=== PATIENT | male | born 1950 | race Caucasian/White ===

== ENCOUNTER 2019-08-13 19:44 | Inpatient (IN) | payer BC, OTHER ==
[~2019-08-13] VITALS: Ht 172.7 cm; Wt 122.9 kg
[2019-08-13 21:13] LABS: Basophils # (auto) 0 uL; Basophils % (auto) 0.2 % (0.0-2.0); Eosinophils # (auto) 0 uL; Hematocrit 41.9 % (41.0-53.0); Hemoglobin 13.8 g/dL (13.5-17.5); Lymphocytes # (auto) 0.6 uL; Lymphocytes % (auto) 3.2 % (10.0-50.0); Mean Corpuscular Hgb Conc. 32.8 g/dL (32.0-36.0); Mean Corpuscular Volume 91.5 fL (80.0-100.0); Monocytes # (auto) 1.6 uL; Monocytes % (auto) 8.4 % (0.0-12.0); Neutrophils # (auto) 16.8 uL; Neutrophils % (auto) 88.2 % (37.0-80.0); Platelet Count (auto) 203 10^3/uL (140-450); Red Blood Cells 4.58 10^6/uL (4.5-5.90); Red Cell Distribution Width 13.9 % (11.8-14.3)
[2019-08-13 21:29] LABS: Partial Thromboplastin Time 30.5 sec (23.64-32.05)
[2019-08-13 21:37] LABS: BUN/Creatinine Ratio 20.4; Calcium 7.8 mg/dL (8.5-10.1); Potassium 3.6 mmol/L (3.5-5.1)
[2019-08-13 21:41] LABS: Bilirubin, Total 0.4 mg/dL (0.2-1.0); Total Protein 7.5 g/dL (6.4-8.2)
[2019-08-13] MEDS ORDERED: DEXTROSE (50%) 50ML SYRG IV ONE (22:00)
[2019-08-13 22:26] LABS: Urine Bacteria NONE SEEN /hpf (None Seen); Urine Blood TRACE /uL (Negative); Urine Hyaline Cast MOD /lpf (0 - 2); Urine Mucus FEW (None Seen); Urine WBC 2 /hpf (0 - 3)
[2019-08-13] MEDS ORDERED: DEXTROSE 10% 1,000 ML IV ONE (22:30)
[2019-08-13] MEDS ORDERED: IOHEXOL 350 MG/ML 100ML IJ ONE (23:31)
[2019-08-13] MEDS ORDERED: ENOXAPARIN SOD 120 MG/0.8 ML SYRINGE SC ONE (23:45)
[2019-08-14] MEDS ORDERED: DEXTROSE 10% 1,000 ML IV STA (01:30)
[2019-08-14] MEDS ORDERED: DEXTROSE (50%) 50ML SYRG IV ONE (01:30)
[2019-08-14] MEDS ORDERED: NITROGLYCERIN 0.4 MG SL TAB SL PRN (03:00)
[2019-08-14] MEDS ORDERED: ACETAMINOPHEN 325 MG TAB PO PRN (03:00)
[2019-08-14] MEDS ORDERED: MORPHINE SULF INJ 2 MG/ML SYRINGE 1ML IV PRN (03:00)
[2019-08-14] MEDS ORDERED: cefTRIAXone 1GM/50ML D5W 50 ML IV ONE (03:00)
[2019-08-14] MEDS ORDERED: METOPROLOL TARTRATE 1MG/1ML-5ML VIAL IV ONE (03:00)
[2019-08-14] MEDS ORDERED: ATORVASTATIN 20 MG TAB PO ONE (03:00)
[2019-08-14] MEDS ORDERED: ONDANSETRON HCL 4 MG/2 ML VIAL IV PRN (03:00)
[2019-08-14] MEDS: DEXTROSE 10% 1,000 ML IV SCH ×2 (03:21→23:00)
[2019-08-14] MEDS: InsuLIN REG 1unit/0.01ml Soln (100units/ml) SC SCH ×5 (04:00→20:00)
[2019-08-14] MEDS: ACCU-CHEK COMFORT CURVE STRIP VI SCH ×5 (04:00→20:13)
[2019-08-14 04:22] LABS: Cholesterol 85 mg/dL (< 200)
[2019-08-14 04:25] LABS: HDL Cholesterol 47 mg/dL (40-59); LDL Cholesterol 34 mg/dL (< 100); Triglycerides 48 mg/dL (< 150)
[2019-08-14] MEDS: DEXTROSE (50%) 50ML SYRG IV PRN ×3 (04:40→11:52)
[2019-08-14] MEDS ORDERED: LOSA25TA38 PO (06:00)
[2019-08-14] MEDS ORDERED: METF-372 PO (06:06)
[2019-08-14] MEDS ORDERED: GLY5T PO (06:06)
[2019-08-14] MEDS ORDERED: LOVA20TA4 PO (06:06)
[2019-08-14] MEDS ORDERED: PIO30T PO (06:06)
[2019-08-14] MEDS ORDERED: HYDR50TA15 PO (06:06)
--- NOTE | 2019-08-14 09:16 | NUR ---
Telemetry admit from ER [place] admitted to Telemetry unit after SBAR received. Patient oriented to [place] RN, unit, room, bed, and unit policies regarding patient care and visiting hours. Patient now on continuous telemetry monitoring, tele box # 39 and telemetry reading on arrival to unit is sinus rhythm in the 70's. Patient weighed by bedscale and encouraged to call if they need something. All questions and concerns addressed, patient verbalized understanding.
[2019-08-14] MEDS ORDERED: ADENOSINE 104 MG in GIVE UN-DILUTED 0 ML IV STA (09:35)
[2019-08-14 10:46] VITALS: BP 132/67
--- NOTE | 2019-08-14 11:36 | NUR ---
BLOOD GLUCOSE CHECK OF 39, REPEAT 44. PATIENT STATES HE FEELS A LITTLE FUZZY. DEXTROSE 50% GIVEN IV. WILL CONTINUE TO MONITOR.
--- NOTE | 2019-08-14 12:33 | NUR ---
BLOOD GLUCOSE RECHECK OF 160, PATIENT STATES HE IS FEELING BETTER.
[2019-08-14 13:00] VITALS: BP 145/74
[2019-08-14] MEDS ORDERED: AZITHROMYCIN 250 MG TAB PO ONE (13:15)
[2019-08-14] MEDS: ENOXAPARIN SOD 120 MG/0.8 ML SYRINGE SC SCH ×2 (13:26→22:25)
[2019-08-14] MEDS: ASPirin 81 mg TAB PO SCH (13:26)
[2019-08-14] MEDS: PANTOPRAZOLE 40 MG/10 ML VIAL INJ IV SCH (13:26)
--- NOTE | 2019-08-14 13:45 | NUR ---
1330 08/14/19 Contacted Speedboat Operator Lisa at [facility] and requested that authorization be provided for patient's continued stay. Lisa is aware that patient has order to transfer to [facility]. Faxed transfer order, transfer summary and Notice Regarding Post Stabilization to [facility]-document scanned into [employer]. Faxed today's labs, vitals and medication list to [facility].
--- NOTE | 2019-08-14 15:55 | NUR ---
1550 08/14/19 I received a call from [facility] Worker Lisa letting me know that they only facility they have a bed at is [facility]-that she spoke with patient and he stated that is too far-patient prefers to stay here. 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 Per Lisa inpatient authorization is given until 08/15/19 1000 with auth number [id number]. I spoke with patient and he verified that he does not want to be transferred to [facility].
[2019-08-14 18:10] VITALS: BP 135/66
--- NOTE | 2019-08-14 20:14 | NUR ---
open note assumed care of pt upon entering room pt awake, alert and oriented x4. pt on room air no distress noted or expressed. pt denied any pain. pt updated on plan of care, and all questions answered to this point. pt bg checked, showed 215, pt reported 'just eating' and after speaking about it further, stated 'rather not have insulin right now its been going down alot', agreed with this nurse to see what next poc bg shows. bed locked, low and 2x rails up. call light in reach, this nurse will round q1hr and prn.
[2019-08-14 22:00] VITALS: BP 148/72
[2019-08-14] MEDS ORDERED: ATORVASTATIN 20 MG TAB PO SCH (22:00)
[2019-08-14] MEDS ORDERED: TEMAZEPAM 15 MG CAP PO ONE (22:30)
[2019-08-15] MEDS ORDERED: cefTRIAXone 1GM/50ML D5W 50 ML IV SCH (03:00)
[2019-08-15] MEDS: InsuLIN REG 1unit/0.01ml Soln (100units/ml) SC SCH ×4 (04:00→12:00)
[2019-08-15] MEDS: ACCU-CHEK COMFORT CURVE STRIP VI SCH ×4 (04:04→12:00)
--- NOTE | 2019-08-15 04:05 | NUR ---
pt poc bg 182, pt refused insulin coverage at this time, stating "id rather not risk it, its not too high and i dont wanna have what happened, happen again".
[2019-08-15 05:00] VITALS: BP 138/66
[2019-08-15 06:13] LABS: Basophils # (auto) 0 uL; Basophils % (auto) 0.6 % (0.0-2.0); Eosinophils # (auto) 0.1 uL; Eosinophils % (auto) 1.5 % (0.0-7.0); Hematocrit 39.6 % (41.0-53.0); Hemoglobin 13.3 g/dL (13.5-17.5); Lymphocytes % (auto) 14.7 % (10.0-50.0); Mean Corpuscular Hemoglobin 30.5 pg (28.0-32.0); Mean Corpuscular Hgb Conc. 33.6 g/dL (32.0-36.0); Mean Corpuscular Volume 90.7 fL (80.0-100.0); Monocytes # (auto) 0.9 uL; Monocytes % (auto) 14.1 % (0.0-12.0); Neutrophils # (auto) 4.5 uL; Neutrophils % (auto) 69.1 % (37.0-80.0); Platelet Count (auto) 187 10^3/uL (140-450); Red Blood Cells 4.37 10^6/uL (4.5-5.90); Red Cell Distribution Width 13.4 % (11.8-14.3); White Blood Cell 6.5 10^3/uL (4.4-10.8)
[2019-08-15 06:35] LABS: Albumin 2.7 g/dL (3.4-5.0); Calcium 7.9 mg/dL (8.5-10.1); Potassium 3.5 mmol/L (3.5-5.1)
[2019-08-15 06:38] LABS: BUN/Creatinine Ratio 15.9; Bilirubin, Total 0.3 mg/dL (0.2-1.0); Total Protein 6.7 g/dL (6.4-8.2)
[2019-08-15 09:00] VITALS: BP 127/79
[2019-08-15] MEDS ORDERED: OPTISON 3ml Vial for INJ IV ONE (09:24)
[2019-08-15] MEDS: PANTOPRAZOLE 40 MG/10 ML VIAL INJ IV SCH (09:42)
[2019-08-15] MEDS: ENOXAPARIN SOD 120 MG/0.8 ML SYRINGE SC SCH (09:43)
[2019-08-15] MEDS: ASPirin 81 mg TAB PO SCH (09:43)
[2019-08-15] MEDS ORDERED: DOXY-286 PO (12:24)
--- NOTE | 2019-08-15 14:00 | NUR ---
Discharge Went over discharge paperwork with patient. Explained that MD called antibiotic in to pharmacy ([facility] in [place]). Removed IV. Removed telemetry and sent it to ICU per protocol. Removed ID band. Patient left in personal vehicle with and all personal belongings.
== END 2019-08-15 14:10 | disposition home or self-care (01) | DRG 280 ==
LOC: EDBD 19:44 → ER 19:49 → TELE 19:50 → TELE-CENTR 08-14 09:16
PROVIDERS: ADMIT Nurse Practitioner; ATTEND Internal Medicine Nephrology
DX: I21.4 Non-ST elevation (NSTEMI) myocardial infarction (principal); J18.9 Pneumonia, unspecified organism; G93.40 Encephalopathy, unspecified; I11.9 Hypertensive heart disease without heart failure; E78.5 Hyperlipidemia, unspecified; E66.01 Morbid (severe) obesity due to excess calories; E11.65 Type 2 diabetes mellitus with hyperglycemia; E11.649 Type 2 diabetes mellitus with hypoglycemia without coma; D72.829 Elevated white blood cell count, unspecified; Z90.49 Acquired absence of other specified parts of digestive tract
CPT/HCPCS: 36415; 70450; 71045; 71275; 78452; 80053; 80061; 81001; 82962; 83605; 83880; 84484; 84702; 85025; 85379; 85610; 85730; 87040; 87086; 93005; 93017; 93306; C9113; G0378; J0153; J0696; J1815; Q9956